=== PATIENT | male | born 1965 ===

== ENCOUNTER 2018-04-23 15:22 | Emergency (ER) | payer SELFPAY ==
[~2018-04-23] VITALS: Ht 152.4 cm; Wt 72.6 kg
--- NOTE | 2018-04-23 17:56 | NUR ---
pt ambualted to bathroom with steady gait.
--- NOTE | 2018-04-23 18:05 | NUR ---
asked pt his name. pt uncooperative.
--- NOTE | 2018-04-23 18:07 | NUR ---
pt reluctant to talk, but said his name is mary bui.
--- NOTE | 2018-04-23 19:40 | NUR ---
Patient is resting comfortably in bed with eyes closed
--- NOTE | 2018-04-23 20:37 | NUR ---
Patient awoke, speaking clearly, a/o x3, ambulatory with a steady gait. Patient requested food/hydration which was provided. Patient discharged to home in stable conditon. Written and verbal after care instructions given. Patient verbalizes understanding of instructions.
== END 2018-04-23 20:39 | disposition home or self-care (01) ==
LOC: ER 15:25 → EDBD 15:25 → ER 20:39
DX: F10.129 Alcohol abuse with intoxication, unspecified (principal)
CPT/HCPCS: A4663